=== PATIENT | female | born 2000 | race Two or more races ===

== ENCOUNTER 2025-03-06 02:11 | Emergency (ER) | payer OTHER ==
[~2025-03-06] VITALS: Ht 160 cm; Wt 99.8 kg
[2025-03-06] MEDS ORDERED: DEXTROSE 5 % AND 0.9 % NACL 1,000 ML IV ONE (03:30)
[2025-03-06 06:21] LABS: BASO % 0.4 % (0.1-1.2); EOS # 0.17 (0.04-0.54); EOS % 1.9 % (0.7-7.0); LYMPH # 2.56 (1.18-3.74); LYMPH % 28.5 % (19.3-53.1); MEAN PLATELET VOLUME 10.20 fl (9.4-12.4); MONO # 0.52 (0.24-0.82); MONO % 5.8 % (4.7-12.5); NEUT # 5.67 (1.56-6.13); NEUT % 63.1 % (34.0-71.1); RED CELL DISTRIBUTION WIDTH 13.1 % (11.6-14.4)
[2025-03-06 06:36] LABS: BUN CREA RATIO 11.0 (7.0-25.0); CREATININE SERUM 0.93 mg/dL (0.55-1.02); GFR 74.71; GLUCOSE FASTING 87.0 mg/dL (65-100); OSMOLALITY SERUM 282.0 MOSM/KG (275-295)
[2025-03-06] MEDS ORDERED: KETOROLAC TROMETHAMINE 60 MG VIAL IM STA (06:36)
[2025-03-06] MEDS ORDERED: KETO10TA2 PO (07:13)
[2025-03-06] MEDS ORDERED: KETOROLAC TROMETHAMINE 60 MG VIAL IM ONE (07:28)
== END 2025-03-06 08:20 ==
LOC: ER 02:12
PROVIDERS: General Practice
DX: F10.129 Alcohol abuse with intoxication, unspecified (principal); S99.821A Other specified injuries of right foot, initial encounter; V03.90XA Pedestrian on foot injured in collision with car, pick-up truck or van, unspecified whether traffic or nontraffic accident, initial encounter; Y93.89 Activity, other specified; Y92.413 State road as the place of occurrence of the external cause